=== PATIENT | female | born 1945 | race Caucasian/White ===

== ENCOUNTER → 2021-10-29 | Outpatient (CLI) | payer MEDICARE ==
--- NOTE | 2021-10-31 08:53 | RAD ---
XR RIBS MIN 3 VIEWS RT W/PA CHEST 10/29/2021 Reason: RIGHT RIB PAIN, HX OF RIGHT BREAST CANCER WITH METASTISIS Comparison: None Technique: PA of the chest, 2 views of the right ribs. Findings: No acute airspace opacity. No pleural effusion or pneumothorax. The cardiomediastinal silhouette is within normal limits. No pulmonary vascular redistribution. No pleural thickening. No displaced rib fracture or acute right rib abnormality. Impression: No acute right rib abnormality. Electronically signed by: Sunil Vegas MD (10/29/2021 4:34 PM) [id number]
== END ==
LOC: RAD 11:12
PROVIDERS: ATTEND Internal Medicine Hematology & Oncology
DX: C50.919 Malignant neoplasm of unspecified site of unspecified female breast (principal); R07.81 Pleurodynia
CPT/HCPCS: 71101